=== PATIENT | female | born 1955 | race Caucasian/White ===

== ENCOUNTER 2017-12-19 00:26 | Outpatient (CLI) | payer MEDICAID, SELFPAY ==
--- NOTE | 2017-12-19 15:00 | DI.COMBO_ITS ---
SYMPTOM/DIAGNOSIS: SCREENING, Z12.31 MAMMOGRAMS: Mammograms were interpreted according to the usual protocol including computer analysis with CAD system, tomosynthesis and C view imaging. Comparison is made with prior examinations. Breast density, Category C. No masses or microcalcifications are seen. There is nothing to suggest malignancy. IMPRESSION: Negative mammogram. Routine screening is recommended. Category 1. MQSA ASSESSMENT OF FINDINGS: Negative. Category 1. Patient will receive a letter notifying them of these results. Bi-RADS category C. The breasts are heterogeneously dense, which may obscure small masses.
== END 2017-12-19 00:46 ==
DX: Z12.31 Encounter for screening mammogram for malignant neoplasm of breast (principal)
CPT/HCPCS: 77063; 77067

== ENCOUNTER 2017-12-24 07:37 | Day surgery (SDC) | payer MEDICAID, SELFPAY ==
--- NOTE | 2017-12-24 06:59 | W.COLOREPORT ---
Colonoscopy Report Date of procedure: 12/24/17 Pre-op diagnosis general: screening colonoscopy Post-op diagnosis procedure note: other (Colon polyps and diverticulosis) Procedure: Colonoscopy with polypectomy by cold forceps Surgeon: Natali Deshpande Anesthesia proc note operative: MAC (JCARLOS Whelan) Estimated blood loss (mL): 3 Pathology: other (4 polyps) Complications: None Disposition: same day Indications: Mrs. Muniz is a pleasant 62 year old female seen in the office for a screening colonoscopy. Risks, benefits and complications were reviewed and she wished to proceed. No guarantees were given or implied. Prep: Miralax Procedure Start Time: 09:16 Procedure End Time: 09:44 Retraction Time: 18 min Findings: 2 transverse polys 1 descending polyp 1 sigmoid polyp moderate diverticulosis for descending and sigmoid colon Procedure Description: After informed consent was obtained the patient was taken to the procedure room placed in a left decubitus position. Monitors were applied and a timeout was done. Patient's name date of procedure type allergies to medications and metal in her body were all reviewed. The patient was then sedated. Once sedated and comfortable rectal exam was done. External exam showed some skin tags and internal exam revealed normal sphincter tone and no palpable masses. The scope was then introduced and retroflexed no internal hemorrhoids were noted. The scope was straightened and advanced to the cecum without difficulty. The TI and appendiceal orifice were both identified. The prep was adequate. The scope was then slowly retracted over [address] back into the rectum. Moderate to severe diverticulosis of the descending and sigmoid colon were identified. 4 small sessile polyps were identified and removed with cold forceps. Once back in the rectum the scope was removed. The patient was woken up and taken back to same day surgery in stable condition. The patient tolerated the procedure. Follow-up: will await final pathology but most likely 3-5 years.
--- NOTE | 2017-12-24 07:03 | PDOC.DSDIS_ITS ---
Discharge Plan Disposition Patient Disposition: HOME Condition: Fair Discharge Details Reason For Visit: colonoscopy Attending Provider: Natali Deshpande Primary Care Provider: Brie Coyle Home Meds and New Rx's Prescriptions: Continue quitkpmn-swt-VD-lycopen-lutein [A Thru Z Select 50+ Formula] 1 EACH tablet 1 ea PO DAILY Qty: 1 RF: 0 atorvastatin [Lipitor] 40 MG tablet 40 mg PO HS Qty: 90 RF: 4 citalopram 10 MG tablet 10 mg PO DAILY Qty: 90 RF: 4 omeprazole magnesium [Prilosec OTC] 20 MG tablet,delayed release (DR/EC) 1 tab PO DAILY Qty: 90 RF: 4 calcium carbonate [Calcium 600] 600 mg calcium (1,500 mg) Tablet 600 mg PO DAILY RF: 0 ferrous sulfate [iron] 325 mg (65 mg iron) Tablet 325 mg PO DAILY RF: 0 Discharge Instructions Instructions: Colonoscopy (DC), Diverticulosis (DC), Colorectal Polyps (DC) Additional Instructions: Findings: 4 polyps diverticulosis Follow up: 3-5 years Diet: high fiber diet New Medications: none Please call if you develop: fevers >101.5 Nausea or Vomiting Abdominal pain that is not transient 1. Because there will be medication in your system for the next 24 hours, you may feel a little sleepy. Your coordination will be affected. Therefore: a. Do not drive or operate dangerous equipment for 24 hours. b. Do not drink alcohol beverages for 24 hours (not even beer). c. Plan to go home and rest for the day. 2. Generally there are no restrictions on your activity after a day or so has gone by, but you may feel a bit fatigued for a few days. 3 After you arrive home you may have a light meal and return to a normal diet as you can tolerate it without feeling sick to your stomach. 4. After surgery, you may feel pain or discomfort. This should be only transient , but if it persists please contact your doctor. 5. If there are any questions regarding the findings of your procedure, please feel free to contact your doctor. 6. If you are unable to contact your doctor with a problem, contact the hospital at [phone]. 7. Continue all your regular medications unless directed otherwise. I understand the above instructions and have no questions. Signature of Patient or Responsible Adult Escort Date/Time Name of Responsible Adult Escort Signature of Nurse Date/Time Activity:: Activity as Tolerated Diet:: high fiber diet Discharge Orders Discharge Orders: Discharge Order (Routine); Ordered 12/24/17 Ordered By: Natali Deshpande
[2017-12-24 07:45] VITALS: BP 116/88; PULSE 80; RESP 16; TEMP 36.5; O2SAT 96
[2017-12-24] MEDS: Lactated Ringers 1,000 ML 80 ML IV (08:03)
--- NOTE | 2017-12-24 09:30 | BOWEL_PTH ---
PATIENT: ELLIOT MAJOR LOC: [facility] U#:[id number] AGE/SX: 62/F ROOM: RE12/24/[address]: Natali Deshpande MD : [id number] BED: DIS: 12/24/2017 SPEC #: [id number] RECD: 12/24/17 12:57 STATUS: ROSA REQ #: [id number] LES: 12/24/17 09:[address]: Natali Deshpande DEPT: Surgical Specimen RECD BY: Selena Post ENTERED: 12/24/17 12:58 SP TYPE: Bowel OTHR DR: Brie Coyle APRN Tissues: 1 - BIOPSY BOWEL 2 - BIOPSY BOWEL 3 - BIOPSY BOWEL Procedures: GROSS AND MICRO LEVEL 4 Comments: [id number]
[2017-12-24 10:25] VITALS: BP 126/79; PULSE 58; RESP 16; TEMP 36.3; O2SAT 98
== END 2017-12-24 10:40 | disposition home or self-care (01) ==
LOC: SUR 07:38
PROVIDERS: Visit Provider Surgery
PROC: 0DJD8ZZ Inspection of Lower Intestinal Tract, Via Natural or Artificial Opening Endoscopic (ICD-10-PCS; CPT 45378; principal; 2017-12-24 09:00)
DX: Z12.11 Encounter for screening for malignant neoplasm of colon (principal); K57.30 Diverticulosis of large intestine without perforation or abscess without bleeding; K63.5 Polyp of colon; D12.3 Benign neoplasm of transverse colon; D12.4 Benign neoplasm of descending colon; K21.9 Gastro-esophageal reflux disease without esophagitis
CPT/HCPCS: 45380; 88305

== ENCOUNTER 2019-08-26 10:47 | Outpatient (CLI) | payer SELFPAY | END 2019-08-26 11:07 | DX: R30.0 Dysuria (principal) | CPT/HCPCS: 81003; 81015; 87086 ==